=== PATIENT | female | born 1950 | race Caucasian/White ===

== ENCOUNTER 2024-12-09 11:00 | Outpatient (OUT) | payer MEDICARE, OTHER, SELFPAY ==
--- NOTE | 2024-12-09 | XR_ITS ---
The [address] [address] Patient Name: CONCHITA MOBLEY MRN: [id number] date: 1950 Sex: F Assigned Patient Location: [facility] Current Patient Location: [facility] Accession/Order Number: [id number] Exam Date: 12/09/2024 11:20 Report Date: 12/09/2024 11:50 At the request of: DINAH SPARKS MD Procedure: XR knee LT 4V LEFT KNEE - 4 views COMPARISON: None CLINICAL DATA: Left knee pain for the past few days medially. No injury. Standing AP, lateral, skiers and patellar views were obtained. There is no acute fracture or dislocation. There is minimal medial tibiofemoral joint compartment narrowing. No prominent hypertrophy is seen. No patellar subluxation is identified. There is a trace amount of joint fluid. No soft tissue swelling is noted. XR/XR knee LT 4V IMPRESSION: NO ACUTE BONY FINDINGS. Impression dictated by: Dinah Navarro M.D. 12/09/2024 11:50 AM Dictation Location: [facility] Electronically authenticated by: [id number] Y Date: 12/09/2024 11:50
== END 2024-12-09 11:01 | disposition home or self-care (01) ==
LOC: RAD 11:00
DX: M17.12 Unilateral primary osteoarthritis, left knee (principal)
CPT/HCPCS: 73564